=== PATIENT | female | born 1965 | race Caucasian/White ===

== ENCOUNTER 2017-02-08 16:05 | Emergency (ER) | payer MEDICAID ==
[~2017-02-08] VITALS: Ht 162.6 cm; Wt 60.0 kg
[2017-02-08] MEDS ORDERED: AMLO2.5T45 PO (16:12)
[2017-02-08] MEDS ORDERED: HYDR12.529 PO (16:12)
[2017-02-08] MEDS ORDERED: METO-396 PO (16:12)
[2017-02-08] MEDS ORDERED: HALO100A IM (16:12)
[2017-02-08] MEDS ORDERED: LISI2.5T47 PO (16:12)
[2017-02-08 18:22] LABS: BASOPHILS % 1.3 % (0.0-2.0); EOSINOPHILS % 2.5 % (0.0-5.0); HEMATOCRIT. 32.7 % (36.0-48.0); HEMOGLOBIN. 10.7 g/dL (12.0-16.0); LYMPHOCYTES % 23.5 % (20.0-50.0); MEAN CORPUSCULAR HEMOGLOBIN 25.5 pg (28.0-32.0); MEAN CORPUSCULAR VOLUME 78.1 fL (81.0-99.0); MEAN PLATELET VOLUME 9.1 fl (7.4-10.4); MONOCYTES % 6.1 % (2.0-8.0); NEUTROPHILS % 66.6 % (40.0-76.0); PLATELET 197 x1000/uL (130-400); RED BLOOD CELL COUNT 4.18 mill/uL (4.2-5.4); RED CELL DISTRIBUTION WIDTH 16.5 % (11.6-14.6)
[2017-02-08 18:27] LABS: CHLORIDE 105 mEq/L (98-107)
[2017-02-08 18:30] LABS: CARBON DIOXIDE 27 mEq/L (21-32)
[2017-02-08] MEDS ORDERED: AMLODIPINE 2.5MG TABLET PO ONE (19:45)
[2017-02-08] MEDS ORDERED: HYDROCHLOROTHIAZIDE 12.5MG CAPSULE PO ONE (19:45)
[2017-02-08] MEDS ORDERED: LISINOPRIL 2.5MG TABLET PO ONE (19:45)
[2017-02-08] MEDS ORDERED: METOPROLOL TARTRATE 25MG TABLET PO ONE (19:45)
[2017-02-08] MEDS ORDERED: LISINOPRIL 2.5MG TABLET PO SCH (20:15)
[2017-02-08] MEDS ORDERED: AMLODIPINE 2.5MG TABLET PO SCH (20:15)
[2017-02-08] MEDS ORDERED: HYDROCHLOROTHIAZIDE 12.5MG CAPSULE PO SCH (20:15)
[2017-02-09 00:04] VITALS: BP 185/94
[2017-02-09] MEDS ORDERED: CLONIDINE 0.1MG TABLET PO ONE (01:15)
== END 2017-02-09 01:20 | disposition home or self-care (01) ==
LOC: ER 16:05
DX: I16.0 Hypertensive urgency (principal); I10 Essential (primary) hypertension
CPT/HCPCS: 36415; 80053; 81025; 85025; 93005; 99285; Z7610